=== PATIENT | male | born 1985 | race Caucasian/White ===

== ENCOUNTER 2017-03-31 19:52 | Emergency (ER) | payer BC ==
[2017-03-31 20:02] VITALS: BP 132/93
--- NOTE | 2017-03-31 20:21 | EDM.PDOC ---
ED HPI GENERAL MEDICAL PROBLEM - General Chief Complaint: Medication Administration Stated Complaint: SHOT BY AN EPI PEN Time Seen by Provider: 03/31/17 19:56 Source of Information: Reports: Patient History Limitations: Reports: No Limitations - History of Present Illness INITIAL COMMENTS - FREE TEXT/NARRATIVE: The patient's accidentally injected her epipen into the right upper chest. He has some tingling in his right arm. He has a little buz. He did have a few drinks before that. He denies any chest pain or shortness of breath. He has no nausea or vomiting or abdominal pain. Onset: Sudden Duration: Minutes: (50) Location: Reports: Chest Quality: Reports: Other (Tingling to his right arm) Severity: Mild Improves with: Reports: None Worsens with: Reports: None Context: Reports: Activity Associated Symptoms: Reports: No Other Symptoms - Related Data Allergies Allergy/AdvReac Type Severity Reaction Status Date / Time codeine Allergy Chest Verified 03/31/17 20:02 Presssure Home Meds: Home Meds . [No Known Home Meds] 03/31/17 [History] Past Medical History Other Cardiovascular History: chest pain, non-cardiac Other Respiratory History: cough, URI Gastrointestinal History: Reports: GERD Psychiatric History: Reports: Anxiety Other Psychiatric History: fatigue, insomnia - Past Surgical History Other HEENT Surgeries/Procedures: foreign body to eye removal Social & Family History - Family History Oncologic: Reports: Lung - Tobacco Use Smoking Status *Q: Current Every Day Smoker Years of Tobacco use: 15 Packs/Tins Daily: 0.5 - Caffeine Use Caffeine Use: Reports: Soda - Alcohol Use Days Per Week of Alcohol Use: 2 Number of Drinks Per Day: 3 Total Drinks Per Week: 6 - Recreational Drug Use Recreational Drug Use: Yes Drug Use in Last 12 Months: No ED ROS GENERAL - Review of Systems Review Of Systems: See Below Constitutional: Reports: No Symptoms HEENT: Reports: No Symptoms Respiratory: Reports: No Symptoms Cardiovascular: Reports: No Symptoms Endocrine: Reports: No Symptoms GI/Abdominal: Reports: No Symptoms : Reports: No Symptoms Musculoskeletal: Reports: No Symptoms Skin: Reports: No Symptoms Neurological: Reports: Other (Tingling right arm) ED EXAM, GENERAL - Physical Exam Exam: See Below Exam Limited By: No Limitations General Appearance: Alert, No Apparent Distress Ears: Normal External Exam Nose: Normal Inspection Head: Atraumatic, Normocephalic Neck: Normal Inspection Respiratory/Chest: No Respiratory Distress, Lungs Clear, Normal Breath Sounds Cardiovascular: Normal Peripheral Pulses, No Edema, Tachycardia GI/Abdominal: Soft, Non-Tender, No Organomegaly, No Mass Extremities: Normal Inspection Neurological: Alert, Oriented, No Motor/Sensory Deficits Course - Vital Signs Last Recorded V/S: Last Vital Signs Temp 98.7 F 03/31/17 19:59 Pulse 107 H 03/31/17 19:59 Resp 30 H 03/31/17 19:59 BP 132/93 H 03/31/17 19:59 Pulse Ox 97 03/31/17 19:59 - Orders/Labs/Meds Orders: Active Orders 24 hr Category Date Time Status EKG 12 Lead [EKG Documentation Completion] [RC] STAT Care 03/31/17 20:20 Active - Re-Assessments/Exams Free Text/Narrative Re-Assessment/Exam: 03/31/17 20:23 I called poison control and they did recommend an EKG and if that looks good he can go. 03/31/17 20:38 His EKG shows a sinus tachycardia without any acute changes. I will discharge him home. Departure - Departure Time of Disposition: 20:40 Disposition: Home, Self-Care 01 Condition: good Clinical Impression: Accidental medication error Qualifiers: Encounter type: initial encounter Qualified Code(s): T50.901A - Poisoning by unspecified drugs, medicaments and biological substances, accidental ( unintentional), initial encounter - Discharge Information Forms: ED Department Discharge Additional Instructions: Please return if you develop any chest pain or shortness of breath. - My Orders Last 24 Hours: My Active Orders 03/31/17 20:20 EKG 12 Lead [EKG Documentation Completion] [RC] STAT - Assessment/Plan Last 24 Hours: My Active Orders 03/31/17 20:20 EKG 12 Lead [EKG Documentation Completion] [RC] STAT
== END 2017-03-31 20:49 | disposition home or self-care (01) ==
LOC: JD.ED 19:52
DX: T50.901A Poisoning by unspecified drugs, medicaments and biological substances, accidental (unintentional), initial encounter (principal); F17.210 Nicotine dependence, cigarettes, uncomplicated; Z88.5 Allergy status to narcotic agent; Z98.890 Other specified postprocedural states
CPT/HCPCS: 93005; 99282; 99284-25

== ENCOUNTER 2017-04-06 21:32 | Emergency (ER) | payer BC ==
--- NOTE | 2017-04-06 21:46 | EDM.PDOC ---
ED HPI GENERAL MEDICAL PROBLEM - General Chief Complaint: Abdominal Pain Stated Complaint: RECTAL BLEED Time Seen by Provider: 04/06/17 21:45 - History of Present Illness INITIAL COMMENTS - FREE TEXT/NARRATIVE: 31-year-old male presents to the emergency room with rectal bleeding. The patient has noticed some blood mostly when he wipes. This has occurred once daily for the last 3 days today he noticed bright red blood in the toilet as well as when he wipes. The patient has never had problems like this in the past. He is averaging one BM a day sometimes is a little on the loose side sometimes firm. He denies any nausea or vomiting however he has intermittent episodes of heartburn that he takes Pepto-Bismol for Rectal Pain Score (Numeric/FACES): 2 - Related Data Allergies Allergy/AdvReac Type Severity Reaction Status Date / Time codeine Allergy Chest Verified 03/31/17 20:02 Presssure Home Meds: Home Meds Acetaminophen [Tylenol] 2,000 mg PO BEDTIME 04/06/17 [History] Hydrocortisone Acetate [Anusol-Hc] 25 mg RC Q12H #20 supp.rect 04/07/17 [Rx] Past Medical History Other Cardiovascular History: chest pain, non-cardiac Other Respiratory History: cough, URI Gastrointestinal History: Reports: GERD Psychiatric History: Reports: Anxiety Other Psychiatric History: fatigue, insomnia - Past Surgical History Other HEENT Surgeries/Procedures: foreign body to eye removal Social & Family History - Family History Oncologic: Reports: Lung - Tobacco Use Smoking Status *Q: Current Every Day Smoker Years of Tobacco use: 15 Packs/Tins Daily: 0.5 - Caffeine Use Caffeine Use: Reports: Soda - Alcohol Use Days Per Week of Alcohol Use: 2 Number of Drinks Per Day: 3 Total Drinks Per Week: 6 - Recreational Drug Use Recreational Drug Use: Yes Drug Use in Last 12 Months: No ED ROS GENERAL - Review of Systems Review Of Systems: See Below Constitutional: Reports: No Symptoms HEENT: Reports: No Symptoms Respiratory: Reports: No Symptoms Cardiovascular: Reports: No Symptoms GI/Abdominal: Reports: Bloody Stool. Denies: Abdominal Pain, Black Stool, Constipation, Difficulty Swallowing, Nausea, Vomiting : Reports: No Symptoms Musculoskeletal: Reports: Back Pain (Chronic) Neurological: Reports: No Symptoms ED EXAM, GI/ABD - Physical Exam Exam: See Below Exam Limited By: No Limitations General Appearance: Alert, No Apparent Distress Respiratory/Chest: No Respiratory Distress, Lungs Clear, Normal Breath Sounds Cardiovascular: Regular Rate, Rhythm, No Edema, No Murmur GI/Abdominal: Normal Bowel Sounds, Soft, Non-Tender. No: Tenderness, Distention , Guarding, Rebound, Rigidity Rectal (Males) Exam: Normal Rectal Tone, Prostate Normal, Heme + Stool, Other ( He has some irregularities of the rectal mucosa I cannot clearly identify a hemorrhoid or fissure) Extremities: Normal Inspection, No Pedal Edema Course - Vital Signs Last Recorded V/S: Last Vital Signs Temp 36.9 C 04/06/17 21:51 Pulse 85 04/06/17 21:51 Resp 20 04/06/17 21:51 BP 132/81 04/06/17 21:51 Pulse Ox 97 04/06/17 21:51 - Orders/Labs/Meds Orders: Active Orders 24 hr Category Date Time Status Abdomen 2V AP Flat Upright [CR] Stat Exams 04/06/17 22:10 Taken Labs: Laboratory Tests 04/06/17 04/06/17 04/06/17 Range/Units 22:10 22:28 22:28 WBC 6.80 (4.23-9.07) K/mm3 RBC 5.35 (4.63-6.08) M/mm3 Hgb 15.1 (13.7-17.5) gm/L Hct 45.1 (40.1-51.0) % MCV 84.3 (79.0-92.2) fl MCH 28.2 (25.7-32.2) pg MCHC 33.5 (32.2-35.5) g/dl RDW Std Deviation 40.4 (35.1-43.9) fL Plt Count 157 L (163-337) K/mm3 MPV 10.9 (9.4-12.3) fl Neutrophils % (Manual) 53 (40-60) % Band Neutrophils % 0 (0-10) % Lymphocytes % (Manual) 34 (20-40) % Atypical Lymphs % 1 % Monocytes % (Manual) 8 (2-10) % Eosinophils % (Manual) 2 (0.8-7.0) % Basophils % (Manual) 2 H (0.2-1.2) Platelet Estimate Adequate Plt Morphology Comment Normal RBC Morph Comment Normal Sodium 142 (136-145) mEq/L Potassium 3.6 (3.5-5.1) mEq/L Chloride 107 (98-107) mEq/L Carbon Dioxide 30 (21-32) mEq/L Anion Gap 8.6 (5-15) BUN 15 (7-18) mg/dL Creatinine 1.2 (0.7-1.3) mg/dL Est Cr Clr Drug Dosing 84.92 mL/min Estimated GFR (MDRD) > 60 (>60) mL/min BUN/Creatinine Ratio 12.5 L (14-18) Glucose 92 (74-106) mg/dL Calcium 8.6 (8.5-10.1) mg/dL Total Bilirubin 0.2 (0.2-1.0) mg/dL AST 14 L (15-37) U/L ALT 33 (16-63) U/L Alkaline Phosphatase 86 (46-116) U/L Total Protein 7.4 (6.4-8.2) g/dl Albumin 3.9 (3.4-5.0) g/dl Globulin 3.5 gm/dL Albumin/Globulin Ratio 1.1 (1-2) Urine Color Yellow (Yellow) Urine Appearance Clear (Clear) Urine pH 7.5 (5.0-8.0) Ur Specific [place] 1.020 (1.005-1.030) Urine Protein Trace H (Negative) Urine Glucose (UA) Negative (Negative) Urine Ketones Negative (Negative) Urine Occult Blood Negative (Negative) Urine Nitrite Negative (Negative) Urine Bilirubin Negative (Negative) Urine Urobilinogen 1.0 (0.2-1.0) Ur Leukocyte Esterase Negative (Negative) Urine RBC 0-5 (0-5) /hpf Urine WBC 0-5 (0-5) /hpf Ur Epithelial Cells Not seen (0-5) /hpf Amorphous Sediment Many H (NOT SEEN) /hpf Urine Bacteria Few (FEW) /hpf Urine Mucus Not seen (FEW) /hpf - Re-Assessments/Exams Free Text/Narrative Re-Assessment/Exam: 04/07/17 00:18 Patient has done well her in the emergency room CBC is notable only for a slightly decreased platelet count 157,000 chemistries are for the most part normal urinalysis is not suggestive of infectious process KUB and upright shows a fairly normal stool pattern no dilated loops of bowel. Patient agrees to followup in the clinic he'll be started on Anusol HC suppositories Departure - Departure Time of Disposition: 00:19 Disposition: Home, Self-Care 01 Clinical Impression: Rectal bleeding - Discharge Information Prescriptions: Hydrocortisone Acetate [Anusol-Hc] 25 mg RC Q12H #20 supp.rect Instructions: Constipation, Adult, [id number], Gastrointestinal Bleeding Referrals: Torie Sutherland PA-C [Primary Care Provider] - Forms: ED Department Discharge Additional Instructions: Return to the emergency room with any questions or problems. Followup in the clinic on Friday or Friday for recheck. Discuss the need for colonoscopy. He was started on Anusol HC suppositories insert one into the rectum twice daily until gone. Push lots of fluids avoid soda pop and caffeine. Lots of fruits and vegetables. Start a stool softener such as Colace 100 mg twice daily. For the heartburn you have tried taking Pepcid, or famotidine 20 mg daily and see if this helps. - My Orders Last 24 Hours: My Active Orders 04/06/17 22:10 Abdomen 2V AP Flat Upright [CR] Stat - Assessment/Plan Last 24 Hours: My Active Orders 04/06/17 22:10 Abdomen 2V AP Flat Upright [CR] Stat
[2017-04-06 21:53] VITALS: BP 132/81
--- NOTE | 2017-04-07 15:46 | CR ---
Abdomen: Supine and upright views of the abdomen were obtained. Comparison: No previous study. Slight increased stool is noted within the colon. No free air is seen. Bowel gas pattern is unremarkable. Bony structures are unremarkable. No abnormal calcifications or soft tissue abnormality is seen. Impression: 1. Slight increased stool within the colon. Two-view abdominal study is otherwise unremarkable. Diagnostic code #2
== END 2017-04-07 00:37 | disposition home or self-care (01) ==
LOC: JD.ED 21:32 → SUPCPDRO 21:32 → JD.ED 04-07 00:37
DX: K62.5 Hemorrhage of anus and rectum (principal); K21.9 Gastro-esophageal reflux disease without esophagitis; F41.9 Anxiety disorder, unspecified; F17.210 Nicotine dependence, cigarettes, uncomplicated; Z98.890 Other specified postprocedural states; Z88.5 Allergy status to narcotic agent
CPT/HCPCS: 36415; 74020; 74020-26; 80053; 81001; 85025; 99283; 99285

== ENCOUNTER 2017-10-10 18:34 | Emergency (ER) | payer BC ==
[2017-10-10 18:43] VITALS: BP 129/94
[2017-10-10] MEDS ORDERED: Sodium Chloride 0.9% 1,000 ML IV ONE (19:35)
[2017-10-10] MEDS ORDERED: Sodium Chloride 0.9% 10 ML Syringe FLUSH PRN (19:35)
--- NOTE | 2017-10-10 19:40 | EDM.PDOC ---
ED HPI GENERAL MEDICAL PROBLEM - General Chief Complaint: Chest Pain Stated Complaint: SOB CHEST PAIN Time Seen by Provider: 10/10/17 19:18 Source of Information: Reports: Patient History Limitations: Reports: No Limitations - History of Present Illness INITIAL COMMENTS - FREE TEXT/NARRATIVE: 32 year old male presents for evaluation and treatment of chest pain and shortness of breath. Patient reports this evening he was watching his daughter' s [email or web address] program when her developed abdominal pain. Reports the abdominal pain than began shooting into his chest. Lasted less than 30 minutes. Currently has "slight" pain. Patient reports associated symptoms of "some" lightheadedness , nausea and a taste of blood in his mouth. No vomiting. Patient reports he has also been experiencing severe headaches since having a CT mylogram done on Friday. Patient has chronic low back pain, sees Dr. Bullock in [place]. Unable to have an MRI due to metal in his face. Reports since having the mylogram he has had headaches, photophobia, phonophobia and neck tightness. No neck pain. Reports the pain improves with laying flat. Has been taking tylenol for the pain. Last dose around 1700. Reports the headaches involve his entire head. States they are severe but are not " hard core". Patient feels the tylenol might have caused the abdominal and chest pain. Patient avoids ibuprofen due to concerns over cardiac side effects. Patient reports he was planning on coming to the ER anyway after the program to have the LP site evaluated. Chest Pain Score (Numeric/FACES): 5 - Related Data Allergies Allergy/AdvReac Type Severity Reaction Status Date / Time codeine Allergy Chest Verified 03/31/17 20:02 Presssure hydrocodone Allergy Chest Pain Verified 10/10/17 18:48 Home Meds: Home Meds Acetaminophen [Tylenol] 650 mg PO DAILY 04/06/17 [History] Vitamin B Complex 1 cap PO DAILY 10/10/17 [History] Past Medical History Other Cardiovascular History: chest pain, non-cardiac Other Respiratory History: cough, URI Gastrointestinal History: Reports: GERD Psychiatric History: Reports: Anxiety Other Psychiatric History: fatigue, insomnia - Past Surgical History HEENT Surgical History: Reports: Oral Surgery Other HEENT Surgeries/Procedures: foreign body to eye removal Social & Family History - Family History Oncologic: Reports: Lung - Tobacco Use Smoking Status *Q: Former Smoker Years of Tobacco use: 15 Packs/Tins Daily: 0.5 Used Tobacco, but Quit: Yes Month Tobacco Last Used: 6 months - Caffeine Use Caffeine Use: Reports: Soda - Alcohol Use Days Per Week of Alcohol Use: 2 Number of Drinks Per Day: 3 Total Drinks Per Week: 6 - Recreational Drug Use Recreational Drug Use: No Drug Use in Last 12 Months: No ED ROS GENERAL - Review of Systems Review Of Systems: See Below HEENT: Reports: Other (reports photophobia; reports a blood like taaste in his mouth) Respiratory: Reports: Shortness of Breath Cardiovascular: Reports: Chest Pain GI/Abdominal: Reports: Abdominal Pain, Nausea. Denies: Vomiting Musculoskeletal: Reports: Back Pain (chronic, radiates into legs). Denies: Neck Pain (reports neck tightness) Neurological: Reports: Headache ED EXAM, GENERAL - Physical Exam Exam: See Below Exam Limited By: No Limitations General Appearance: Alert, WD/WN, No Apparent Distress Eye Exam: Bilateral Eye: Normal Inspection Ears: Normal External Exam Nose: Normal Inspection Throat/Mouth: Normal Inspection, Normal Voice, No Airway Compromise Head: Atraumatic, Normocephalic Neck: Normal Inspection, Non-Tender, Full Range of Motion Respiratory/Chest: No Respiratory Distress, Lungs Clear, Normal Breath Sounds Cardiovascular: Normal Peripheral Pulses, Regular Rate, Rhythm, No Murmur GI/Abdominal: Normal Bowel Sounds, Soft, Non-Tender Back Exam: Normal Inspection, Full Range of Motion, Other (no surrounding erythema or drainage from the recent LP site, around L3). No: Vertebral Tenderness Extremities: Normal Inspection Neurological: Alert, Oriented, Normal Cognition Psychiatric: Normal Affect, Normal Mood Skin Exam: Warm, Dry, Normal Color EKG INTERPRETATION EKG Date: 10/10/17 Time: 20:25 Rhythm: NSR Rate (Beats/Min): 71 [place]: Normal P-Wave: Present QRS: Normal ST-T: Normal QT: Normal EKG Interpretation Comments: NSR at [address]-T wave changes noted. No ischemia changes noted. Reviewed by myself and Dr. Sanchez. Course - Vital Signs Last Recorded V/S: Last Vital Signs Temp 36.7 C 10/10/17 18:42 Pulse 75 10/10/17 18:42 Resp 13 10/10/17 18:42 BP 129/94 H 10/10/17 18:42 Pulse Ox 96 10/10/17 18:42 Orthostatic Blood Pressure [ 114/85 Standing] Orthostatic Blood Pressure [ 115/86 Sitting] Orthostatic Blood Pressure [ 110/95 Supine] - Orders/Labs/Meds Labs: Laboratory Tests 10/10/17 10/10/17 Range/Units 19:50 19:50 WBC 6.60 (4.23-9.07) K/mm3 RBC 5.43 (4.63-6.08) M/mm3 Hgb 15.2 (13.7-17.5) gm/L Hct 44.7 (40.1-51.0) % MCV 82.3 (79.0-92.2) fl MCH 28.0 (25.7-32.2) pg MCHC 34.0 (32.2-35.5) g/dl RDW Std Deviation 38.6 (35.1-43.9) fL Plt Count 184 (163-337) K/mm3 MPV 10.6 (9.4-12.3) fl Neutrophils % (Manual) 62 H (40-60) % Band Neutrophils % 0 (0-10) % Lymphocytes % (Manual) 34 (20-40) % Atypical Lymphs % 0 % Monocytes % (Manual) 2 (2-10) % Eosinophils % (Manual) 2 (0.8-7.0) % Basophils % (Manual) 0 L (0.2-1.2) Platelet Estimate Adequate RBC Morph Comment Normal Sodium 142 (136-145) mEq/L Potassium 3.9 (3.5-5.1) mEq/L Chloride 106 (98-107) mEq/L Carbon Dioxide 26 (21-32) mEq/L Anion Gap 13.9 (5-15) BUN 14 (7-18) mg/dL Creatinine 1.0 (0.7-1.3) mg/dL Est Cr Clr Drug Dosing 108.01 mL/min Estimated GFR (MDRD) > 60 (>60) mL/min BUN/Creatinine Ratio 14.0 (14-18) Glucose 90 (74-106) mg/dL Calcium 9.4 (8.5-10.1) mg/dL Total Bilirubin 0.2 (0.2-1.0) mg/dL AST 20 (15-37) U/L ALT 41 (16-63) U/L Alkaline Phosphatase 78 (46-116) U/L Troponin I < 0.017 (0.00-0.056) ng/mL Total Protein 7.5 (6.4-8.2) g/dl Albumin 4.0 (3.4-5.0) g/dl Globulin 3.5 gm/dL Albumin/Globulin Ratio 1.1 (1-2) Lipase 101 (73-393) U/L Meds: Medications Discontinued Medications Generic Name Dose Route Start Last Admin Trade Name Freq PRN Reason Stop Dose Admin Sodium Chloride 1,000 mls @ 999 mls/hr 10/10/17 19:35 10/10/17 19:50 Normal Saline IV 10/10/17 20:35 999 mls/hr ONETIME ONE Administration Sodium Chloride 10 ml 10/10/17 19:35 10/10/17 19:52 Saline Flush FLUSH 10 ml ASDIRECTED PRN Administration Keep Vein Open - Radiology Interpretation Free Text/Narrative:: chest xray shows no acute intrathoracic process. Flat and upright shows no acute process. No air fluid lines. Formal radiology reads pending. - Re-Assessments/Exams Free Text/Narrative Re-Assessment/Exam: 10/10/17 21:18 Patient was offered medication for headaches and chest pain. Does not want to take anything stronger than tylenol. Does not want to take ibuprofen due to concerns over side effects. I reviewed the xray, ekg and labs with the patient. He is anxious to go home at this time. He feels the pain he experienced earlier was gas pains. I do not feel he is having a spinal headache that requires a blood patch. He is in no obvious distress and has been sitting up during his entire ER visit. He has also been up and walking around the ER without any obvious distress. Will discharge home at this time. Discharge instructions as documented. Departure - Departure Time of Disposition: 21:27 Disposition: Home, Self-Care 01 Condition: Good Clinical Impression: Headache, Abdominal pain Instructions: Abdominal Pain, Adult, General Headache Without Cause Referrals: PCP,None [Primary Care Provider] - Forms: ED Department Discharge Additional Instructions: Continue with your current plan of care. Rest. make sure you are drinking plenty of fluids. Utilize [id number] Tylenol. Please return to the ER if your symptoms change or worsen.
--- NOTE | 2017-10-13 08:33 | CR ---
Chest: Frontal view of the chest was obtained. Comparison: Prior chest x-ray of 04/17/15. Heart size and mediastinum are normal. Lungs are clear. Bony structures are grossly intact. Impression: 1. Nothing acute is identified on frontal chest x-ray. Diagnostic code #1
--- NOTE | 2017-10-13 08:33 | CR ---
Abdomen: Supine and upright views of the abdomen was obtained. Comparison: Prior abdominal x-ray of 04/06/17. Bowel gas pattern appears within normal limits. Minimal increased stool incidentally is noted. No abnormal calcifications or soft tissue abnormality is seen. Bony structures are unremarkable. No free air is identified. Impression: 1. Minimal increased stool. Diagnostic code #2
== END 2017-10-10 21:35 | disposition home or self-care (01) ==
LOC: JD.ED 18:34
DX: R10.9 Unspecified abdominal pain (principal); R51 Headache; R07.9 Chest pain, unspecified; Z87.891 Personal history of nicotine dependence; Z88.5 Allergy status to narcotic agent
CPT/HCPCS: 36415; 71010; 74020; 80053; 83690; 84484; 85025; 93005; 96360; 99285; J7040; J7050; 93010; 99284

== ENCOUNTER 2018-06-07 21:19 | Emergency (ER) | payer BC ==
[2018-06-07 21:33] VITALS: BP 145/98
--- NOTE | 2018-06-07 22:25 | EDM.PDOC ---
ED HPI GENERAL MEDICAL PROBLEM - General Chief Complaint: ENT Problem Stated Complaint: CHOCKED ON SOME FOOD THAT HAD PLASTIC Time Seen by Provider: 06/07/18 22:05 Source of Information: Reports: Patient History Limitations: Reports: No Limitations - History of Present Illness INITIAL COMMENTS - FREE TEXT/NARRATIVE: Patient is a 32 year old male who presents to the E.D. after swallowing plastic wrapping on pepporoni. States this evening bought some meats from the [email or web address] and cooked it this evening. States he swallowed a piece of meat and start to choke on the plastic wrapping that was left on the meat when cut. This subsided after a few seconds but still has a sensation of something scratching his throat when he swallows. He is able to swallow his secretions with no difficulty. He does not have the sensation of something stuck in his throat. He is moving air with no issues. In addition states his stomach feels tight with no pain. He has no N/V, sob, cp, or any additional complaints. Treatments ALLOPATHIC DOCTOR: Reports: Other (see below) Other Treatments ALLOPATHIC DOCTOR: tried water,pop-food. - Related Data Allergies Allergy/AdvReac Type Severity Reaction Status Date / Time codeine Allergy Chest Verified 03/31/17 20:02 Presssure hydrocodone Allergy Chest Pain Verified 10/10/17 18:48 Home Meds: Home Meds Acetaminophen [Tylenol] 650 mg PO DAILY 04/06/17 [History] Vitamin B Complex 1 cap PO DAILY 10/10/17 [History] Past Medical History Other Cardiovascular History: chest pain, non-cardiac Other Respiratory History: cough, URI Gastrointestinal History: Reports: GERD, Other (See Below) Other Gastrointestinal History: Ward esophagus Neurological History: Reports: Migraines Psychiatric History: Reports: Anxiety, Depression Other Psychiatric History: fatigue, insomnia - Past Surgical History HEENT Surgical History: Reports: Oral Surgery Other HEENT Surgeries/Procedures: foreign body to eye removal Social & Family History - Family History Oncologic: Reports: Lung - Tobacco Use Smoking Status *Q: Never Smoker - Caffeine Use Caffeine Use: Reports: Soda - Recreational Drug Use Recreational Drug Use: No ED ROS GENERAL - Review of Systems Review Of Systems: See Below ED EXAM, GI/ABD - Physical Exam Exam: See Below Exam Limited By: No Limitations General Appearance: Alert, WD/WN, No Apparent Distress Ears: Hearing Grossly Normal Nose: Normal Inspection Throat/Mouth: Normal Voice, No Airway Compromise Head: Atraumatic, Normocephalic Neck: Normal Inspection, Supple, Non-Tender, Full Range of Motion Respiratory/Chest: No Respiratory Distress, Lungs Clear, Normal Breath Sounds, Chest Non-Tender Cardiovascular: Normal Peripheral Pulses, Regular Rate, Rhythm, No Murmur GI/Abdominal Exam: Normal Bowel Sounds, Soft, Non-Tender, No Organomegaly, No Distention Neurological: Alert, Oriented, CN II-XII Intact, Normal Cognition, No Motor/ Sensory Deficits Psychiatric: Normal Affect, Normal Mood Skin Exam: Warm, Dry, Intact, Normal Color Course - Vital Signs Last Recorded V/S: Last Vital Signs Temp 98.3 F 06/07/18 21:32 Pulse 87 06/07/18 21:32 Resp 20 06/07/18 21:32 BP 145/98 H 06/07/18 21:32 Pulse Ox 99 06/07/18 21:32 - Re-Assessments/Exams Free Text/Narrative Re-Assessment/Exam: No testing or treatment required at this time. X-ray of the abdomen would not change my treatment plan and would not be radioopaque. Thus will not be obtained. Patient understands and agrees with plan in allowing plastic to pass. If he should have any new or worsening symptoms he will return back to the E.D. Departure - Departure Time of Disposition: 22:25 Disposition: Home, Self-Care 01 Condition: Good Clinical Impression: Swallowed foreign body Qualifiers: Encounter type: initial encounter Qualified Code(s): T18.9XXA - Foreign body of alimentary tract, part unspecified, initial encounter - Discharge Information Instructions: Swallowed Foreign Body, Adult, [id number] Referrals: Michael Moore PA-C [Primary Care Provider] - Forms: ED Department Discharge Additional Instructions: Suspect the plastic wrapping from the meat will pass without any issues within your stool. In addition suspect the scratchy sensation to your throat with swallowing is due to the irritation of the esophagus. This will heal in the next few days. Please monitor for any new or worsening symptoms. If you should experience any please return to the E.D. for reevaluation.
== END 2018-06-07 22:32 | disposition home or self-care (01) ==
LOC: JD.ED 21:19
DX: T18.9XXA Foreign body of alimentary tract, part unspecified, initial encounter (principal); Z79.899 Other long term (current) drug therapy; Z88.5 Allergy status to narcotic agent
CPT/HCPCS: 99283

== ENCOUNTER 2023-10-18 13:30 | Emergency (ER) | payer MEDICAID ==
[2023-10-18 13:49] VITALS: BP 132/89; PULSE 69
== END 2023-10-18 14:34 | disposition home or self-care (01) ==
LOC: JD.ED 13:30
DX: K64.9 Unspecified hemorrhoids (principal); Z88.5 Allergy status to narcotic agent
CPT/HCPCS: 99283